=== PATIENT | male | born 1935 | race Caucasian/White ===

== ENCOUNTER 2018-08-02 16:27 | Observation (INO) ==
[2018-08-02] MEDS ORDERED: Ondansetron 4 MG/2 ML VIAL IVP ONE (16:52)
[2018-08-02] MEDS ORDERED: Ketorolac 15 MG/ML VIAL IVP ONE (16:52)
--- NOTE | 2018-08-02 16:58 | Emergency Department Note ---
Disposition Clinical Impression: Kidney stone Disposition: Admitted As Inpatient Condition: Good Referrals: Scott Belle MD [Primary Care Provider] - Forms: ED Satisfaction Letter, Work/School Release General Adult HPI - General Chief complaint: ED Abdominal Pain Stated complaint: Kidney stone Time Seen by Provider: 08/02/18 16:43 Source: patient Mode of arrival: private vehicle Limitations: no limitations Nursing Notes Reviewed: Yes Vital Signs Reviewed: Yes - History of Present Illness HPI Narrative: Pt is an 83M with Pmhx of multiple kidney stones, some requiring surgical resection. He presents today with inability to control pain at home. He was seen at this facility 2 days prior, dx with an 8mm obstructing stone in his left ureter, prescribed pain control for use at home, told to f/u with urology, and discharged. Pt is allergic to percocet, was unable to tolerate oral morphine, and has been unable to control pain. He states that it is a sharp, stabbing pain, that is 8/10 in severity, starts in his left flank and radiates around into his left lower quadrant of abdomen. He has not really been eating or drinking and has only urinated a little today, and it was very dark. Pt states the last time he had kidney stones was approx 3-4 years ago and he had to have 17 of them removed from his kidney. Pt is scheduled with Dr. Gutierrez on Friday but cannot wait until then. Pain Scale: 8 - Related Data Previous Rx's Medication Instructions Recorded Ondansetron ODT [Zofran ODT] 4 mg SL Q6HR #10 tab.rapdis 07/31/18 Allergies Allergy/AdvReac Type Severity Reaction Status Date / Time oxycodone Allergy See Verified 07/31/18 00:55 Comments Review of Systems: All systems ED: reviewed and negative except as stated. Constitutional: Denies: fever, chills ENT ED: Denies: ear pain, throat pain Cardiovascular: Denies: chest pain, palpitations Respiratory: Denies: cough, dyspnea Gastrointestinal: Denies: abdominal pain, diarrhea, constipation Reports: nausea, vomiting Genitourinary: Denies: urgency, dysuria, frequency Reports: flank pain, left sided, decreased urine production Musculoskeletal: Denies: back pain, neck pain Integumentary: Denies: rash, abrasion Neurological: Denies: headache, weakness, numbness, paresthesias Psychiatric: Denies: anxiety, depression Endocrine: Denies: fatigue, heat or cold intolerance Hematological/Lymphatic: Denies: easy bleeding, easy bruising Allergic/Immunologic: Denies: facial swelling, urticaria Past Medical History - Past Medical History Medical history: Reports: hyperlipidemia, hypertension, kidney stones, thyroid disease Psychiatric history: Reports: no psych history - Social History Smoking Status: Never smoker Smokeless Tobacco Status: No Alcohol use: Reports: none Drug use: Reports: none Physical Exam General: A&O x 3. No acute distress. Well developed, well nourished. Head: atraumatic, normocephalic. ENT: No conjunctival injection, no scleral icterus. PERRLA. EOMI. Oropharynx non- erythematous. mucous membranes tacky. Neuro: No focal deficits, no speech deficit, no facial droop, mentating well. BUE/BLE Str /. Pulm: Lungs CTAB A/P. No wheezes, rales, ronchi. Cardio: RRR no m/r/g. Chest not tender to palpation. Abd: Soft, non-distended. Normoactive bowel sounds. Left flank tender, left side of abdomen tender Extremities: Radial pulses 2+ jairo, dorsalis pedis/posterior tibialis 2+ jairo. No LE edema. No cyanosis, clubbing. Skin: warm, dry, intact. No rashes. Psych: Appropriate mood and affect. Answers questions appropriately. Cooperative with exam. - General Limitations: no limitations General appearance: alert, in no apparent distress Course Course Narrative: Pt had CT scan on 07/31, will check CBC, BMP, UA. Will consult Urology. Will place IV. Will adminster anti-emetic and pain control. Will admit for pain control. - Consultations Consultation #1: Spoke with Dr. Monroe, urologist, who agreed to see the patient the next day. Time: 17:00 Vital Signs Temperature 98.2 F 08/02/18 16:37 Pulse Rate 71 08/02/18 16:37 Respiratory Rate 20 08/02/18 16:37 Blood Pressure 153/60 08/02/18 16:37 O2 Sat by Pulse Oximetry 95 08/02/18 16:37 Temperature 98.2 F 08/02/18 16:53 Pulse Rate 71 08/02/18 16:53 Respiratory Rate 20 08/02/18 16:53 Blood Pressure 153/60 08/02/18 16:53 O2 Sat by Pulse Oximetry 95 08/02/18 16:53 Oxygen Delivery Oxygen Delivery Room Air Medical Decision Making - MDM Narrative Medical decision making narrative: Pt was unable to control pain at home, and has a hx of needing surgical intervention for kidney stones in the past. Pt was admitted to Dr. Flores, hospitalist, who accepted the patient to her service. Dr. Monroe, urologist, was consulted and agreed to see the patient the next day for intervention. Pts kidney function was decreased from two days prior, toradol will be avoided while he is in the emergency department. Patient was given an opportunity to ask questions at bedside and all of their concerns were addressed. Patient verbalized understanding and agreement with plan of care. Pt remained stable while in the department. - Medical Records Medical records reviewed: Yes I reviewed the patient's medical records. - Lab Data Lab results reviewed: Yes I reviewed the patient's lab results. Result diagrams: 08/02/18 17:00 08/02/18 17:00 Lab Results 08/02/18 08/02/18 08/02/18 Range/Units 16:57 17:00 17:00 WBC 11.8 H D (4.3-11.1) K/mcL RBC 3.44 L (4.19-5.50) M/mcL Hgb 11.9 L (12.9-16.9) g/dL Hct 36.6 L (37.5-50.1) % MCV 106.4 H (83.0-100.0) fL MCH 34.6 H (28.0-33.3) pg MCHC 32.5 (31.6-35.5) g/dL RDW 14.3 (11.5-14.5) % Plt Count 244 (140-400) K/mcL MPV 9.8 (9.4-12.4) fL Immature Gran % 0.5 (0-4) % Seg Neutrophils % 82.3 % Lymphocytes % 3.0 % Monocytes % 12.1 % Eosinophils % 1.8 % Basophils % 0.3 % Neutrophils # 9.7 H (1.6-8.9) K/mcL Lymphocytes # 0.4 L (0.6-4.6) K/mcL Monocytes # 1.4 H (0.0-1.3) K/mcL Eosinophils # 0.2 (0.0-0.6) K/mcL Basophils # 0.0 (0.0-0.2) K/mcL Sodium 137 (136-145) mEq/L Potassium 4.1 (3.5-5.1) mEq/L Chloride 104 (98-107) mEq/L Carbon Dioxide 22 L (23-29) mEq/L BUN 28 H (8-23) mg/dL Creatinine 1.77 H (0.70-1.30) mg/dL Est GFR ( Amer) 45 L (> 60) Est GFR (Non-Af Amer) 37 L (> 60) BUN/Creatinine Ratio 16 (6-26) Glucose 131 H (70-105) mg/dL Calculated Osmolality 291 (280-300) Calcium 9.0 (8.6-10.3) mg/dL Urine Color Yellow (Yellow) Urine Clarity Clear (Clear) Urine pH 6.0 (5.0-8.0) pH Units Ur Specific [place] 1.020 (1.010-1.025) Urine Protein 30 H (Neg-Trace) mg/dL Urine Glucose (UA) Normal (Normal) mg/dL Urine Ketones Negative (Negative) mg/dL Urine Blood Small H (Negative) Urine Nitrite Negative (Negative) Urine Bilirubin Negative (Negative) Urine Urobilinogen Normal (Normal) mg/dL Ur Leukocyte Esterase Negative (Negative) Urine Microscopic RBC 5-15 H (0-3) per hpf Urine Microscopic WBC 0-3 (0-3) per hpf Ur Squamous Epith Cells Many H (None-Few) per lpf Urine Bacteria None Seen (None-Few) per hpf Hyaline Casts None Seen (None-Few) per lpf Ur Culture Indicated? NO (NO) - Radiology Data Radiology results reviewed: Yes I reviewed the patient's radiology results. Radiology results from 07/31/18 were used in the medical decision making of this case.
[2018-08-02] MEDS ORDERED: *HR* FentaNYL (PF) 100 MCG/2 ML VIAL IVP ONE (17:04)
[2018-08-02 17:05] LABS: Bilirubin,Urine Negative (Negative); Blood,Urine Small (Negative); Clarity,Urine Clear (Clear); Color,Urine Yellow (Yellow); Glucose,Urine (UA) Normal (Normal); Ketones,Urine Negative (Negative); Leukocyte Esterase,Urine Negative (Negative); Nitrite,Urine Negative (Negative); Protein,Urine 30 mg/dL (Neg-Trace); Urobilinogen,Urine Normal (Normal)
[2018-08-02 17:17] LABS: Basophils % 0.3 %; Eosinophils # 0.2 K/mcL (0.0-0.6); Eosinophils % 1.8 %; Hematocrit 36.6 % (37.5-50.1); Hemoglobin 11.9 g/dL (12.9-16.9); Immature Granulocytes % 0.5 % (0-4); Lymphocytes # 0.4 K/mcL (0.6-4.6); Mean Corpuscular HGB Conc 32.5 g/dL (31.6-35.5); Mean Corpuscular Hemoglobin 34.6 pg (28.0-33.3); Mean Corpuscular Volume 106.4 fL (83.0-100.0); Mean Platelet Volume 9.8 fL (9.4-12.4); Monocytes # 1.4 K/mcL (0.0-1.3); Monocytes % 12.1 %; Neutrophils # 9.7 K/mcL (1.6-8.9); Platelet Count 244 K/mcL (140-400); Red Blood Count 3.44 M/mcL (4.19-5.50); Red Cell Distribution Width 14.3 % (11.5-14.5); Segmented Neutrophils % 82.3 %
[2018-08-02 17:21] LABS: Bacteria,Urine None Seen per hpf (None-Few); Hyaline Casts,Urine None Seen per lpf (None-Few); Squamous Epithelial Cell,Urine Many per lpf (None-Few); WBC,Urine 0-3 per hpf (0-3)
[2018-08-02 17:36] LABS: Potassium 4.1 mEq/L (3.5-5.1)
--- NOTE | 2018-08-02 17:58 | Emergency Department Note ---
Disposition Clinical Impression: Kidney stone Disposition: Admitted As Inpatient Condition: Good Forms: ED Satisfaction Letter, Work/School Release General Adult HPI - General Chief complaint: ED Abdominal Pain Stated complaint: Kidney stone Time Seen by Provider: 08/02/18 16:43 Source: patient Mode of arrival: private vehicle Limitations: no limitations - History of Present Illness Pain Scale: 8 - Related Data Previous Rx's Medication Instructions Recorded Ondansetron ODT [Zofran ODT] 4 mg SL Q6HR #10 tab.rapdis 07/31/18 Allergies Allergy/AdvReac Type Severity Reaction Status Date / Time oxycodone Allergy See Verified 07/31/18 00:55 Comments Past Medical History - Past Medical History Medical history: Reports: hyperlipidemia, hypertension, kidney stones, thyroid disease Psychiatric history: Reports: no psych history - Social History Smoking Status: Never smoker Smokeless Tobacco Status: No Alcohol use: Reports: none Drug use: Reports: none Physical Exam - General Limitations: no limitations General appearance: alert, in no apparent distress Course Vital Signs Temperature 98.2 F 08/02/18 16:37 Pulse Rate 71 08/02/18 16:37 Respiratory Rate 20 08/02/18 16:37 Blood Pressure 153/60 08/02/18 16:37 O2 Sat by Pulse Oximetry 95 08/02/18 16:37 Temperature 98.2 F 08/02/18 16:53 Pulse Rate 71 08/02/18 16:53 Respiratory Rate 20 08/02/18 16:53 Blood Pressure 153/60 08/02/18 16:53 O2 Sat by Pulse Oximetry 95 08/02/18 16:53 Oxygen Delivery Oxygen Delivery Room Air Medical Decision Making - Lab Data Result diagrams: 08/02/18 17:00 08/02/18 17:00 Lab Results 08/02/18 08/02/18 08/02/18 Range/Units 16:57 17:00 17:00 WBC 11.8 H D (4.3-11.1) K/mcL RBC 3.44 L (4.19-5.50) M/mcL Hgb 11.9 L (12.9-16.9) g/dL Hct 36.6 L (37.5-50.1) % MCV 106.4 H (83.0-100.0) fL MCH 34.6 H (28.0-33.3) pg MCHC 32.5 (31.6-35.5) g/dL RDW 14.3 (11.5-14.5) % Plt Count 244 (140-400) K/mcL MPV 9.8 (9.4-12.4) fL Immature Gran % 0.5 (0-4) % Seg Neutrophils % 82.3 % Lymphocytes % 3.0 % Monocytes % 12.1 % Eosinophils % 1.8 % Basophils % 0.3 % Neutrophils # 9.7 H (1.6-8.9) K/mcL Lymphocytes # 0.4 L (0.6-4.6) K/mcL Monocytes # 1.4 H (0.0-1.3) K/mcL Eosinophils # 0.2 (0.0-0.6) K/mcL Basophils # 0.0 (0.0-0.2) K/mcL Sodium 137 (136-145) mEq/L Potassium 4.1 (3.5-5.1) mEq/L Chloride 104 (98-107) mEq/L Carbon Dioxide 22 L (23-29) mEq/L BUN 28 H (8-23) mg/dL Creatinine 1.77 H (0.70-1.30) mg/dL Est GFR ( Amer) 45 L (> 60) Est GFR (Non-Af Amer) 37 L (> 60) BUN/Creatinine Ratio 16 (6-26) Glucose 131 H (70-105) mg/dL Calculated Osmolality 291 (280-300) Calcium 9.0 (8.6-10.3) mg/dL Urine Color Yellow (Yellow) Urine Clarity Clear (Clear) Urine pH 6.0 (5.0-8.0) pH Units Ur Specific [place] 1.020 (1.010-1.025) Urine Protein 30 H (Neg-Trace) mg/dL Urine Glucose (UA) Normal (Normal) mg/dL Urine Ketones Negative (Negative) mg/dL Urine Blood Small H (Negative) Urine Nitrite Negative (Negative) Urine Bilirubin Negative (Negative) Urine Urobilinogen Normal (Normal) mg/dL Ur Leukocyte Esterase Negative (Negative) Urine Microscopic RBC 5-15 H (0-3) per hpf Urine Microscopic WBC 0-3 (0-3) per hpf Ur Squamous Epith Cells Many H (None-Few) per lpf Urine Bacteria None Seen (None-Few) per hpf Hyaline Casts None Seen (None-Few) per lpf Ur Culture Indicated? NO (NO) Attestation Statement - Attestation Attestation: I examined this patient and my medical decision-making was reviewed with the Resident Physician. I agree with the documented findings, disposition and treatment plan as described except to the extent set forth below. 83 year old male presents to the eD with complaints of kidney stone pain and has a 8mm onthe proximal left ureter. elevted crn, no infection. we will admit to medicine accepted by Dr. Flores, consulted to Dr. Monroe
--- NOTE | 2018-08-02 18:05 | Internal Med History&Physical ---
Date of Encounter: 08/03/18 Time of Encounter: 18:04 Internal Medicine - H&P: HPI Chief complaint: Left Flank Pain Admitted From: Home History of present illness: Mr. Frances is a 83 year old male Pmhx of multiple kidney stones voice presenting today left ankle sharp stabbing pain that radiated to the left lower quadrant of his abdomen, viewing his records revealed that he was evaluated at [facility] 2 days ago and an 8 mm obstructing stone of his left ureter was noted, he was told to follow-up with urology as an outpatient. The patient is allergic to Percocet, and he could not control his pain at home. He is scheduled to see urology and Friday however due to he is in ability to control pain at home, he was admitted for further evaluation and management by urology team, we will discussed the case with the ER staff and agreed to see the patient on consult. Past Med Surg Social Fam HX - Past Medical History Medical history: hyperlipidemia, hypertension, kidney stones, thyroid disease Additional medical history: pneumonia Psychiatric history: no psych history - Past Surgical History Additional surgical history: thyroid. lithotripsy - Social History Smoking Status: Never smoker Smokeless Tobacco Status: No Alcohol use: none Drug use: none - Family History Father Hx Family Cancer: Yes Internal Medicine - H&P: Meds Ondansetron ODT [Zofran ODT] 4 mg SL Q6HR #10 tab.rapdis 07/31/18 [Rx] Albuterol Sulfate [Ventolin Hfa] 8 gm IH DAILY 08/03/18 [History] Aspirin [Lo-Dose Aspirin EC] 81 mg PO DAILY 08/03/18 [History] Atorvastatin [Lipitor] 40 mg PO HS 08/03/18 [History] Cholecalciferol (Vitamin D3) [Vitamin D] 1,000 unit PO DAILY 08/03/18 [History] Clopidogrel [Plavix] 75 mg PO DAILY 08/03/18 [History] Cyanocobalamin (Vitamin B-12) [Vitamin B12] 500 mcg PO QMWFSU 08/03/18 [History] Folic Acid [FA-8] 0.8 mg PO DAILY 08/03/18 [History] Levothyroxine [Synthroid] 125 mcg PO DAILY 08/03/18 [History] Lisinopril [Zestril] 10 mg PO DAILY 08/03/18 [History] Mercaptopurine [Purinethol] 50 mg PO DAILY 08/03/18 [History] Metoprolol Tartrate 50 mg PO BID 08/03/18 [History] Pantoprazole Sodium [Protonix] 40 mg PO DAILY 08/03/18 [History] Sertraline [Zoloft] 50 mg PO HS 08/03/18 [History] traZODone [TraZODone] 100 mg PO HS 08/03/18 [History] Allergy/AdvReac Type Severity Reaction Status Date / Time oxycodone Allergy Hallucinati Verified 08/02/18 19:47 ng All Systems PM: A 10-system review of systems was performed and is negative for pertinent findings except as documented above in the HPI. - Constitutional Constitutional: no chills, no fever(s), no night sweats - EENT Eyes: no change in vision, no discharge, no pain, no photophobia Ears: no ear discharge, no ear pain, no tinnitus Nose, mouth and throat: no dysphagia, no nasal discharge, no neck pain, no sore throat - Cardiovascular Cardiovascular ROS IM: no chest pain, no diaphoresis, no dyspnea, no lightheadedness, no palpitations, no syncope - Respiratory Respiratory: no cough, no dyspnea, no wheezing, no excessive phlegm production - Gastrointestinal Gastrointestinal: no abdominal pain, no diarrhea, no hematemesis, no hematochezia, no melena, no nausea, no vomiting - Genitourinary Genitourinary ROS male: flank pain - Musculoskeletal Musculoskeletal ROS IM: no numbness, no tingling - Integumentary Integumentary IM: no rash, no unusual bruising - Neurological Neurological ROS: no confusion, no convulsions, no focal weakness, no numbness, no tingling, no tremor(s) - Hematologic/Lymphatic Hematologic/Lymphatic: no easy bruising - Constitutional Vitals: Temp Pulse Resp BP Pulse Ox 98.2 F 71 20 153/60 95 08/02/18 16:53 08/02/18 16:53 08/02/18 16:53 08/02/18 16:53 08/02/18 16:53 Exam: As below - Head Head exam: Present: atraumatic, normocephalic - Eye Eye exam: Present: PERRL, conjuntiva pink, sclera anicteric Pupils: Present: PERRL - Neck Neck exam general surgery: Present: supple, trachea midline. Absent: lymphadenopathy - Respiratory Respiratory exam: Present: CTAB. Absent: accessory muscle use, rales, rhonchi, wheezes - Cardiovascular Cardiovascular exam: Present: RRR, +S1, +S2. Absent: diastolic murmur, gallop, rubs, systolic murmur - GI/Abdominal GI/Abdominal exam: Present: normal bowel sounds, soft, no peritoneal signs. Absent: distended, tenderness - Extremities Exam Extremities exam: Present: warm, radial pulses palpable and symmetrical. Absent: calf tenderness, cyanotic, pedal edema - Neurological Exam Neurological exam: Present: CN II-XII intact, oriented X3, no focal deficits. Absent: pronater drift, facial droop, speech deficit - Skin Skin exam: Present: dry, intact Internal Med - H&P Results - Labs CBC & Chem 7: 08/03/18 03:16 08/03/18 03:16 Labs: Short CBC 08/02/18 Range/Units 17:00 WBC 11.8 H D (4.3-11.1) K/mcL Hgb 11.9 L (12.9-16.9) g/dL Hct 36.6 L (37.5-50.1) % Plt Count 244 (140-400) K/mcL Neutrophils # 9.7 H (1.6-8.9) K/mcL BMP 08/02/18 17:00 Sodium 137 Potassium 4.1 Chloride 104 Carbon Dioxide 22 L BUN 28 H Creatinine 1.77 H Glucose 131 H Calcium 9.0 Urine 08/02/18 Range/Units 16:57 Urine Color Yellow (Yellow) Urine Clarity Clear (Clear) Urine pH 6.0 (5.0-8.0) pH Units Ur Specific [place] 1.020 (1.010-1.025) Urine Protein 30 H (Neg-Trace) mg/dL Urine Glucose (UA) Normal (Normal) mg/dL - Assessment and Plan (1) Urolithiasis Current Visit: No Status: Acute Assessment and plan: 8 mm obstructing stone of his left ureter was noted, he was told to follow-up with urology as an outpatient. The patient is allergic to Percocet, and he could not control his pain at home. He is scheduled to see urology and Friday however due to he is in ability to control pain at home, he was admitted for further evaluation and management by urology team, we will discussed the case with the ER staff and agreed to see the patient on consult for possible ureteroscopic stone extraction. We will start the patient on IV hydration and start pain management. (2) Acute kidney injury Current Visit: Yes Status: Acute Assessment and plan: Most likely 2/2 to pre-renal etiology in the sitting of volume depletion, we will start isotonic fluid, strict I?o , renal dosing of meds. (3) Metabolic acidosis Current Visit: Yes Status: Acute Assessment and plan: most likely 2/2 to renal impairment. (4) Anemia Current Visit: Yes Status: Acute Assessment and plan: Macrocytic anemia, we will check folic acid and Vit. B12 levels. Qualifiers: Qualified Code(s): D64.9 - Anemia, unspecified (5) Aortic aneurysm Current Visit: No Status: Acute Qualifiers: Qualified Code(s): I71.9 - Aortic aneurysm of unspecified site, without rupture (6) DVT prophylaxis Current Visit: Yes Status: Acute Assessment and plan: We will place SCD - Time Spent With Patient Total time spent is greater than 50% in coordination of care (as documented) at patient's floor/unit and/or counseling patient:
[2018-08-02] MEDS ORDERED: Ondansetron 4 MG/2 ML VIAL IVP PRN (18:12)
[2018-08-02] MEDS ORDERED: Naloxone 0.4 MG/ML INJ IVP PRN ×2 (18:12)
[2018-08-02] MEDS ORDERED: Ketorolac 30 MG/ML VIAL IVP PRN (18:12)
[2018-08-02] MEDS ORDERED: Acetaminophen 325 MG TABLET PO PRN (18:12)
[2018-08-02] MEDS ORDERED: *HR* HYDROcodone/Acet 7.5/325 mg TABLET PO PRN ×3 (19:26→22:09)
[2018-08-02] MEDS: 0.9 % Sodium Chloride 1,000 ML IVC SCH (19:59)
[2018-08-02] MEDS ORDERED: Acetaminophen IV 500 MG/50 ML INFUS..BTL IVPB ONE (21:36)
[2018-08-02] MEDS ORDERED: traMADol 50 MG TABLET PO PRN (21:55)
[2018-08-02] MEDS: traMADol 50 MG TABLET PO PRN (22:30)
[2018-08-03] MEDS ORDERED: OXYCODONE Oral CONC 10 MG/0.5 ML ORAL.SYG SL ONE (00:04)
[2018-08-03 03:55] LABS: Basophils % 0.2 %; Eosinophils # 0.1 K/mcL (0.0-0.6); Eosinophils % 1.5 %; Hematocrit 34.4 % (37.5-50.1); Hemoglobin 11.2 g/dL (12.9-16.9); Immature Granulocytes % 0.5 % (0-4); Lymphocytes # 0.5 K/mcL (0.6-4.6); Lymphocytes % 4.8 %; Mean Corpuscular HGB Conc 32.6 g/dL (31.6-35.5); Mean Corpuscular Volume 107.5 fL (83.0-100.0); Mean Platelet Volume 10.5 fL (9.4-12.4); Monocytes # 1.4 K/mcL (0.0-1.3); Monocytes % 15.4 %; Neutrophils # 7.2 K/mcL (1.6-8.9); Platelet Count 211 K/mcL (140-400); Red Cell Distribution Width 14.2 % (11.5-14.5); Segmented Neutrophils % 77.6 %
[2018-08-03 04:02] LABS: INR 1.1; Prothrombin Time 12.9 Seconds (9.4-12.1)
[2018-08-03 04:05] LABS: Activated Partial Thrombo Time 30.1 Seconds (26.0-36.0)
[2018-08-03] MEDS: 0.9 % Sodium Chloride 1,000 ML IVC SCH (04:11)
[2018-08-03 04:13] LABS: Albumin 3.5 g/dL (3.5-5.7); Albumin/Globulin Ratio 1.5 (1.1-2.2); Bilirubin,Total 0.9 mg/dL (0.3-1.0); Calcium 8.7 mg/dL (8.6-10.3); Globulin 2.4 g/dL (2.4-3.5); Magnesium 1.7 mg/dL (1.6-2.6); Phosphorous 2.8 mg/dL (2.7-4.5); Potassium 4.2 mEq/L (3.5-5.1); Total Protein 5.9 g/dL (6.4-8.9)
[2018-08-03] MEDS: traMADol 50 MG TABLET PO PRN (06:05)
--- NOTE | 2018-08-03 07:10 | Event Note ---
Date of Encounter: 08/03/18 Time of Encounter: 07:09 Full history and physical to follow. Patient seen this morning and examined. Having moderate discomfort in the left flank. I reviewed the CT scan which reveals an 8 mm proximal ureteral stone with hydronephrosis. He has acute renal insufficiency. He has been scheduled for a possible ureteroscopic stone extraction with holmium laser lithotripsy and ureteral stent placement. We discussed that it is possible that we would only be able to place a ureteral stent which would require a staged procedure to address the stone. He voiced an understanding and wishes to proceed. He understands it may be myself or Dr. Meeks depending on timing today
--- NOTE | 2018-08-03 07:56 | Urology - Consult Note ---
Date of Encounter: 08/03/18 Time of Encounter: 07:54 - Assessment and Plan (1) Ureteral stone with hydronephrosis Current Visit: Yes Status: Acute Assessment and plan: Please see the event note. Plan to proceed with ureteroscopic stone extraction with holmium laser lithotripsy and ureteral stent placement today. Patient understands that we may not be able to reach the stone which would require a stent placement and stage stone extraction. He understands the risks of the procedure which includes infection, stent complications, stent discomfort, stricture, injury to his urinary tract. Urology CN:CAMILLE Consult date: 08/03/18 Reason for consult Urology: Hydronephrosis History of present illness: 83-year-old male admitted for an 8 mm obstructing left ureteral stone with hydronephrosis and acute renal insufficiency. Continues to have pain this morning. He has a history of stones. He has had no fever. Positive nausea. Past Med Surg Social Fam HX - Past Medical History Medical history: hyperlipidemia, hypertension, kidney stones, thyroid disease Additional medical history: pneumonia Psychiatric history: no psych history - Past Surgical History Additional surgical history: thyroid. lithotripsy - Social History Smoking Status: Never smoker Smokeless Tobacco Status: No Alcohol use: none Drug use: none - Family History Father Hx Family Cancer: Yes Medications and Allergies Ondansetron ODT [Zofran ODT] 4 mg SL Q6HR #10 tab.rapdis 07/31/18 [Rx] Albuterol Sulfate [Ventolin Hfa] 8 gm IH DAILY 08/03/18 [History] Aspirin [Lo-Dose Aspirin EC] 81 mg PO DAILY 08/03/18 [History] Atorvastatin [Lipitor] 40 mg PO HS 08/03/18 [History] Cholecalciferol (Vitamin D3) [Vitamin D] 1,000 unit PO DAILY 08/03/18 [History] Clopidogrel [Plavix] 75 mg PO DAILY 08/03/18 [History] Cyanocobalamin (Vitamin B-12) [Vitamin B12] 500 mcg PO QMWFSU 08/03/18 [History] Folic Acid [FA-8] 0.8 mg PO DAILY 08/03/18 [History] Levothyroxine [Synthroid] 125 mcg PO DAILY 08/03/18 [History] Lisinopril [Zestril] 10 mg PO DAILY 08/03/18 [History] Mercaptopurine [Purinethol] 50 mg PO DAILY 08/03/18 [History] Metoprolol Tartrate 50 mg PO BID 08/03/18 [History] Pantoprazole Sodium [Protonix] 40 mg PO DAILY 08/03/18 [History] Sertraline [Zoloft] 50 mg PO HS 08/03/18 [History] traZODone [TraZODone] 100 mg PO HS 08/03/18 [History] Allergy/AdvReac Type Severity Reaction Status Date / Time oxycodone Allergy Hallucinati Verified 08/02/18 19:47 ng Review of Systems - Constitutional no chills, no fatigue, no fever(s), no malaise - EENT Nose, mouth and throat: no dizziness, no headache(s) - Cardiovascular no chest pain - Respiratory no cough - Gastrointestinal abdominal pain, nausea, vomiting - Genitourinary flank pain, hematuria - Musculoskeletal back pain - Integumentary no erythema - Neurological no confusion - Psychiatric no anxiety - Hematologic/Lymphatic no easy bleeding - Allergic/Immunologic no throat swelling Exam Initial Vital Signs Temp Pulse Resp BP Pulse Ox 98.2 F 71 20 153/60 95 08/02/18 16:37 08/02/18 16:37 08/02/18 16:37 08/02/18 16:37 08/02/18 16:37 - General physical appearance Present: well developed, no distress, moderate pain - Eyes Present: PERRL, conjunctiva is clear - ENT Present: normal nares - Neck Present: no masses - Respiratory Present: normal respiratory effort - Cardiovascular Cardiovascular exam IM: RRR - Abdomen Abdomen: Present: soft. Absent: suprapubic tenderness - Integumentary Present: no rash, no growths, no abnormal pigmentation - Neurologic Present: normal coordination. Absent: disoriented, confused - Additional Findings Positive left CVA tenderness Urology Results - Labs 08/03/18 03:16 08/03/18 03:16 Abnormal lab results RBC 3.20 M/mcL (4.19-5.50) L 08/03/18 03:16 Hgb 11.2 g/dL (12.9-16.9) L 08/03/18 03:16 Hct 34.4 % (37.5-50.1) L 08/03/18 03:16 MCV 107.5 fL (83.0-100.0) H 08/03/18 03:16 MCH 35.0 pg (28.0-33.3) H 08/03/18 03:16 Lymphocytes # 0.5 K/mcL (0.6-4.6) L 08/03/18 03:16 Monocytes # 1.4 K/mcL (0.0-1.3) H 08/03/18 03:16 PT 12.9 Seconds (9.4-12.1) H 08/03/18 03:16 Creatinine 1.59 mg/dL (0.70-1.30) H 08/03/18 03:16 Est GFR ( Amer) 51 (> 60) L 08/03/18 03:16 Est GFR (Non-Af Amer) 42 (> 60) L 08/03/18 03:16 Glucose 124 mg/dL (70-105) H 08/03/18 03:16 Serum Total Protein 5.9 g/dL (6.4-8.9) L 08/03/18 03:16 Urine Protein 30 mg/dL (Neg-Trace) H 08/02/18 16:57 Urine Blood Small (Negative) H 08/02/18 16:57 Urine Microscopic RBC 5-15 per hpf (0-3) H 08/02/18 16:57 Ur Squamous Epith Cells Many per lpf (None-Few) H 08/02/18 16:57 Diabetes panel 08/02/18 08/03/18 Range/Units 17:00 03:16 Sodium 137 138 (136-145) mEq/L Potassium 4.1 4.2 (3.5-5.1) mEq/L Chloride 104 106 (98-107) mEq/L Carbon Dioxide 22 L 23 (23-29) mEq/L BUN 28 H 22 (8-23) mg/dL Creatinine 1.77 H 1.59 H (0.70-1.30) mg/dL Glucose 131 H 124 H (70-105) mg/dL Calcium 9.0 8.7 (8.6-10.3) mg/dL AST 15 (13-39) Units/L ALT 10 (7-52) Units/L Alkaline Phosphatase 60 (34-104) Units/L Albumin 3.5 (3.5-5.7) g/dL Calcium panel 08/02/18 08/03/18 Range/Units 17:00 03:16 Calcium 9.0 8.7 (8.6-10.3) mg/dL Phosphorus 2.8 (2.7-4.5) mg/dL Albumin 3.5 (3.5-5.7) g/dL Pituitary panel 08/02/18 08/03/18 Range/Units 17:00 03:16 Sodium 137 138 (136-145) mEq/L Potassium 4.1 4.2 (3.5-5.1) mEq/L Chloride 104 106 (98-107) mEq/L Carbon Dioxide 22 L 23 (23-29) mEq/L BUN 28 H 22 (8-23) mg/dL Creatinine 1.77 H 1.59 H (0.70-1.30) mg/dL Glucose 131 H 124 H (70-105) mg/dL Calcium 9.0 8.7 (8.6-10.3) mg/dL Adrenal panel 08/02/18 08/03/18 Range/Units 17:00 03:16 Sodium 137 138 (136-145) mEq/L Potassium 4.1 4.2 (3.5-5.1) mEq/L Chloride 104 106 (98-107) mEq/L Carbon Dioxide 22 L 23 (23-29) mEq/L BUN 28 H 22 (8-23) mg/dL Creatinine 1.77 H 1.59 H (0.70-1.30) mg/dL Glucose 131 H 124 H (70-105) mg/dL Calcium 9.0 8.7 (8.6-10.3) mg/dL Total Bilirubin 0.9 (0.3-1.0) mg/dL AST 15 (13-39) Units/L ALT 10 (7-52) Units/L Alkaline Phosphatase 60 (34-104) Units/L Albumin 3.5 (3.5-5.7) g/dL All other labs normal. - Imaging CT scan - abdomen: image reviewed Consult Discharge Plan - Plan Referrals: Scott Belle MD [Primary Care Provider] -
[2018-08-03] MEDS ORDERED: *HR* HYDROcodone/Acet 7.5/325 mg TABLET PO PRN ×2 (09:35→18:07)
[2018-08-03] MEDS: *HR* FentaNYL (PF) 100 MCG/2 ML VIAL IVP PRN ×2 (10:07→13:10)
--- NOTE | 2018-08-03 10:28 | Internal Med Progress Note ---
<Heber Vogel - Last Filed: 08/03/18 10:26> Hospitalist Progress Note - Encounter Date of Encounter: 08/03/18 Time of Encounter: 09:20 - Subjective Interval History: Mr. Frances continues to experience back pain and dysuria. Pain is 9/10 despite Blue Ridge and Ultram. Admits to decreased urine output and hematuria. Denies chest pain, SOB. Denies fever, chills, vomiting, diarrhea, but does admit to nausea. Slept decently. No BM since admission. - Exam Vitals: Temp Pulse Resp BP Pulse Ox 97.3 F L 80 18 136/80 93 08/03/18 07:52 08/03/18 07:52 08/03/18 07:52 08/03/18 07:52 08/03/18 07:52 Exam: As below - Head Head exam: Present: atraumatic, normocephalic - Eye Eye exam: Present: PERRL, conjuntiva pink, sclera anicteric Pupils: Present: PERRL - Neck Neck exam general surgery: Present: supple, trachea midline. Absent: lymphadenopathy - Respiratory Respiratory exam: Present: CTAB. Absent: accessory muscle use, rales, rhonchi, wheezes - Cardiovascular Cardiovascular exam: Present: RRR, +S1, +S2. Absent: diastolic murmur, gallop, rubs, systolic murmur - GI/Abdominal GI/Abdominal exam: Present: normal bowel sounds, soft, no peritoneal signs. Absent: distended, tenderness - Extremities Exam Extremities exam: Present: warm, radial pulses palpable and symmetrical. Absent: calf tenderness, cyanotic, pedal edema - Neurological Exam Neurological exam: Present: CN II-XII intact, oriented X3, no focal deficits. Absent: pronater drift, facial droop, speech deficit - Skin Skin exam: Present: dry, intact - Assessment and Plan (1) Urolithiasis Current Visit: No Status: Acute Assessment and Plan: (1) Urolithiasis Current Visit: No Status: Acute Assessment and plan: Stable. CT abdomen/pelvis without IV contrast demonstrates left sided obstructive uropathy with 8mm calculus in proximal left ureter with moderate hydroureter and hydronephrosis. Urology has been seen. Plan: -Pain uncontrolled. Will start [place] 7.5 q 6h and fentanyl 25mcg IVP q3h as needed. -Continue NPO -Plan to proceed with ureteroscopic stone extraction with holmium laser lithotripsy and ureteral stent placement per Dr. Monroe, possibly today. Will check schedule. -O2 as needed for SPO2 >92% Dispo pending (2) Acute kidney injury Current Visit: Yes Status: Acute Assessment and plan: Improving. RADHA likely 2/2 to pre-renal etiology in the sitting of volume depletion, continue IVF, strict I/O , renal dosing of meds. (3) Anemia Current Visit: Yes Status: Acute Assessment and plan: Macrocytic anemia, we will check folic acid and Vit. B12 levels. Qualifiers: Qualified Code(s): D64.9 - Anemia, unspecified (4) Aortic aneurysm Current Visit: No Status: Acute Qualifiers: Qualified Code(s): I71.9 - Aortic aneurysm of unspecified site, without rupture (5) DVT prophylaxis Current Visit: Yes Status: Acute Assessment and plan: We will place SCD - Time Spent with Patient Total time spent is greater than 50% in coordination of care (as documented) at patient's floor/unit and/or counseling patient: Greater than 35 minutes Plan of Care Discussed with: patient Internal Medicine: Result - Labs CBC & Chem 7: 08/03/18 03:16 08/03/18 03:16 Labs: Short CBC 08/02/18 08/03/18 Range/Units 17:00 03:16 WBC 11.8 H D 9.3 (4.3-11.1) K/mcL Hgb 11.9 L 11.2 L (12.9-16.9) g/dL Hct 36.6 L 34.4 L (37.5-50.1) % Plt Count 244 211 (140-400) K/mcL Neutrophils # 9.7 H 7.2 (1.6-8.9) K/mcL BMP 08/02/18 08/03/18 17:00 03:16 Sodium 137 138 Potassium 4.1 4.2 Chloride 104 106 Carbon Dioxide 22 L 23 BUN 28 H 22 Creatinine 1.77 H 1.59 H Glucose 131 H 124 H Calcium 9.0 8.7 Liver Function 08/03/18 Range/Units 03:16 Total Bilirubin 0.9 (0.3-1.0) mg/dL AST 15 (13-39) Units/L ALT 10 (7-52) Units/L Alkaline Phosphatase 60 (34-104) Units/L Albumin 3.5 (3.5-5.7) g/dL Urine 08/02/18 Range/Units 16:57 Urine Color Yellow (Yellow) Urine Clarity Clear (Clear) Urine pH 6.0 (5.0-8.0) pH Units Ur Specific [place] 1.020 (1.010-1.025) Urine Protein 30 H (Neg-Trace) mg/dL Urine Glucose (UA) Normal (Normal) mg/dL - ABG Interpretation ABG results: PT/INR, D-dimer PT 12.9 Seconds (9.4-12.1) H 08/03/18 03:16 Consult Discharge Plan - Plan Referrals: Scott Belle MD [Primary Care Provider] - 08/06/18 2:00 pm <Dakota Brower - Last Filed: 08/03/18 15:48> Hospitalist Progress Note - Encounter Date of Encounter: 08/03/18 - Exam Vitals: Temp Pulse Resp BP Pulse Ox 98.9 F 78 15 145/75 92 08/03/18 11:25 08/03/18 11:25 08/03/18 11:25 08/03/18 11:25 08/03/18 11:25 - Assessment and Plan (1) Urolithiasis Current Visit: No Status: Acute (2) Aortic aneurysm Current Visit: No Status: Acute (3) Acute kidney injury Current Visit: Yes Status: Acute (4) Metabolic acidosis Current Visit: Yes Status: Acute (5) Anemia Current Visit: Yes Status: Acute (6) DVT prophylaxis Current Visit: Yes Status: Acute - Time Spent with Patient Total time spent is greater than 50% in coordination of care (as documented) at patient's floor/unit and/or counseling patient: Internal Medicine: Result - Labs CBC & Chem 7: 08/03/18 03:16 08/03/18 03:16 Labs: Short CBC 08/02/18 08/03/18 Range/Units 17:00 03:16 WBC 11.8 H D 9.3 (4.3-11.1) K/mcL Hgb 11.9 L 11.2 L (12.9-16.9) g/dL Hct 36.6 L 34.4 L (37.5-50.1) % Plt Count 244 211 (140-400) K/mcL Neutrophils # 9.7 H 7.2 (1.6-8.9) K/mcL BMP 08/02/18 08/03/18 17:00 03:16 Sodium 137 138 Potassium 4.1 4.2 Chloride 104 106 Carbon Dioxide 22 L 23 BUN 28 H 22 Creatinine 1.77 H 1.59 H Glucose 131 H 124 H Calcium 9.0 8.7 Liver Function 08/03/18 Range/Units 03:16 Total Bilirubin 0.9 (0.3-1.0) mg/dL AST 15 (13-39) Units/L ALT 10 (7-52) Units/L Alkaline Phosphatase 60 (34-104) Units/L Albumin 3.5 (3.5-5.7) g/dL Urine 08/02/18 Range/Units 16:57 Urine Color Yellow (Yellow) Urine Clarity Clear (Clear) Urine pH 6.0 (5.0-8.0) pH Units Ur Specific [place] 1.020 (1.010-1.025) Urine Protein 30 H (Neg-Trace) mg/dL Urine Glucose (UA) Normal (Normal) mg/dL - ABG Interpretation ABG results: PT/INR, D-dimer PT 12.9 Seconds (9.4-12.1) H 08/03/18 03:16 - Attending Attestation I examined this patient and my medical decision-making was reviewed with the Resident Physician Dr. Vogel. I agree with the documented findings, disposition and treatment plan as described except to the extent set forth below. Mr. Frances is a 83 year old male PMH of multiple kidney stones, hypertension and hyperlipidemia pt presented to ER with left flank sharp stabbing pain that radiated to the left lower quadrant of his abdomen. He does have 8 mm obstruc ting stone of his left ureter was noted. Patient was admitted in the hospital and started him on symptomatic and supportive care. His pain is not tolerable with current medication. So started him on IV fentanyl. His UA - benign. Was evaluated by urologist who is planning on taking him to OR today for possible cystoscopy, stent placement with stone extraction/lithotripsy. <Heber Vogel - Last Filed: 08/03/18 10:26> (1) Urolithiasis Qualifiers: Qualified Code(s): N20.9 - Urinary calculus, unspecified <Dakota Brower - Last Filed: 08/03/18 15:48> (2) Aortic aneurysm Qualifiers: Qualified Code(s): I71.9 - Aortic aneurysm of unspecified site, without rupture (5) Anemia Qualifiers: Qualified Code(s): D64.9 - Anemia, unspecified
[2018-08-03] MEDS ORDERED: Ondansetron 4 MG/2 ML VIAL ONE (15:39)
[2018-08-03] MEDS ORDERED: Lidocaine -MPF 2% 2 ML VIAL ONE (15:39)
[2018-08-03] MEDS ORDERED: *HR* Propofol 200 MG/20 ML VIAL IVP ONE (15:39)
[2018-08-03] MEDS ORDERED: *HR* FentaNYL (PF) 100 MCG/2 ML VIAL ONE ×2 (15:39→16:48)
[2018-08-03] MEDS ORDERED: Dexamethasone 4 MG/ML VIAL ONE (15:39)
--- NOTE | 2018-08-03 15:57 | Anesthesia Evaluation PreOp ---
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: Denies Any Significant HX Other Medical History: Renal (RADHA, stones), Thyroid (hypo) Anesthesia History: No Prior Anesthetic Complications, Past Anesthesia (lithotripsy, s/p thyroidectomy) Alcohol Use: none Drug use: none Medications and Allergies Ondansetron ODT [Zofran ODT] 4 mg SL Q6HR #10 tab.rapdis 07/31/18 [Rx] Albuterol Sulfate [Ventolin Hfa] 8 gm IH DAILY 08/03/18 [History] Aspirin [Lo-Dose Aspirin EC] 81 mg PO DAILY 08/03/18 [History] Atorvastatin [Lipitor] 40 mg PO HS 08/03/18 [History] Cholecalciferol (Vitamin D3) [Vitamin D] 1,000 unit PO DAILY 08/03/18 [History] Clopidogrel [Plavix] 75 mg PO DAILY 08/03/18 [History] Cyanocobalamin (Vitamin B-12) [Vitamin B12] 500 mcg PO QMWFSU 08/03/18 [History] Folic Acid [FA-8] 0.8 mg PO DAILY 08/03/18 [History] Levothyroxine [Synthroid] 125 mcg PO DAILY 08/03/18 [History] Lisinopril [Zestril] 10 mg PO DAILY 08/03/18 [History] Mercaptopurine [Purinethol] 50 mg PO DAILY 08/03/18 [History] Metoprolol Tartrate 50 mg PO BID 08/03/18 [History] Pantoprazole Sodium [Protonix] 40 mg PO DAILY 08/03/18 [History] Sertraline [Zoloft] 50 mg PO HS 08/03/18 [History] traZODone [TraZODone] 100 mg PO HS 08/03/18 [History] Allergy/AdvReac Type Severity Reaction Status Date / Time oxycodone Allergy Hallucinati Verified 08/02/18 19:47 ng - Meds/Allergy Pre-op Review Medications Reviewed: Yes Allergies Reviewed: Yes Beta Blockers on Current Med List: Yes If Beta Blockers taken, Date/Time (Last Dose taken): am yesterday at home but not started in the hospital Anesthesia Results - Labs 08/03/18 03:16 08/03/18 03:16 - Imaging EKG: image reviewed (08/03/17 SR) Anesthesia Exam Vital Signs/O2 Sat, Most Current Temp Pulse Resp BP Pulse Ox 98.9 F 83 17 145/75 88 08/03/18 15:48 08/03/18 15:48 08/03/18 15:48 08/03/18 11:25 08/03/18 15:48 - HEENT Pupil (Motor): Pupils equal, EOMI Mallampati: II Teeth: Edentulous Oral Opening: Greater than 3 - SALES REPRESENTATIVE GRAPHIC ART LOC: Oriented SALES REPRESENTATIVE GRAPHIC ART Motor: Normal RUE, Normal LUE, Normal RLE, Normal LLE, Normal Face SALES REPRESENTATIVE GRAPHIC ART Sensory: Normal: RUE, LUE, RLE, LLE, Face - Cardiac Rhythm: Regular - Pulmonary Breath Sounds: bilateral Clear Respiratory Effort: Labored Anesthesia Assess/Plan ASA Score: 4 Level of consciousness: Cooperative Anesthetic Plan: General (increased risk of post op pulmonary complications) Monitoring Plan: Standard Monitors Recovery Plan: PACU
[2018-08-03] MEDS ORDERED: Isovue-300 50 ML VIAL ONE (16:07)
[2018-08-03] MEDS ORDERED: Ipratropium/Albuterol Neb 3 ML ONE (16:09)
[2018-08-03] MEDS ORDERED: Ipratropium/Albuterol Neb 3 ML IH ONE (16:10)
[2018-08-03] MEDS ORDERED: Ipratropium Neb 0.5 MG NEBULIZER IH ONE ×2 (16:45→18:07)
[2018-08-03] MEDS ORDERED: Ondansetron 4 MG/2 ML VIAL IVP ONE ×2 (16:45→18:07)
[2018-08-03] MEDS ORDERED: *HR* FentaNYL (PF) 100 MCG/2 ML VIAL IVP PRN ×3 (16:45→18:07)
[2018-08-03] MEDS ORDERED: Albuterol 2.5 MG/3 ML NEBULIZER IH ONE ×2 (16:45→18:07)
[2018-08-03] MEDS ORDERED: *HR* Metoprolol 5 MG/5 ML VIAL IVP ONE (16:52)
--- NOTE | 2018-08-03 17:23 | Operative Note ---
Date of procedure: 08/03/18 Pre-op diagnosis: Left ureteral calculus Post-op diagnosis: same Procedure: Cystoscopy, left retrograde ureteral pyelography with intraoperative interpretation of radial graphic images in real time by surgeon to facilitate procedure, left ureteroscopy and laser lithotripsy of left ureteral calculus left double-J stent placement. Implants: 6 x 26 left double-J stent Complications: None Anesthesia: GETA Surgeon: Santhosh Meeks Was there an employment legal assistant present: No Estimated blood loss (cc): 0 Specimen: none Condition: stable Disposition: PACU Procedure in Detail: Cystoscopy with LEFT Retrograde Pyelography, Intraoperative Interpretation of all Radiographic Images in Real Time by Surgeon (necessary for succesful completion of procedure), Ureteroscopy, Holmium Laser Lithotripsy of Ureteral Calculus, Retrograde Placement of Ureteral Stent under Flouroscopic Guidance: The patient was brought to the operating theater, identified by name, date of and medical record number. He was administered a general anesthetic. The patient was positioned in dorsal lithotomy then prepped and draped in sterile fashion. The cystoscope was inserted into the urethral meatus and advanced toward the bladder under direct visualization. No abnormalities of the urethra were appreciated. No abnormalities of the bladder were appreciated. An open-ended catheter was placed into the ipsilateral ureter and with gentle injection of contrast a retrograde pyelogram was performed. Real-time interpretation of these radiographic images were performed by nitza. Real- time interpretation of retrograde images revealed a filling defect in the mid to distal ureter with significant obstruction and difficulty injecting contrast beyond this defect. These findings were consistent with the stone recently seen on CT migrating from the proximal to distal ureter. Based on intraoperative interpretation of these images the following procedure was indicated: A Glidewire was passed through the open-ended catheter and into the ipsilateral renal pelvis. The cystoscope and open-ended ureteral catheter were removed leaving the Glidewire in place. Alongside the Glidewire and under direct vision a rigid ureteroscope was advanced through the urethra, bladder and into the ureter. Under direct vision the ureteroscope was advanced in the ureter until the stone was encountered. Once the stone was encountered a 200 holmium laser fiber was obtained and placed on a setting of 0.5 and a rate of 20. The stone was easily fragmented into multiple small pieces which were felt to be of easily passable and non-clinically significant size. At this point the ureteroscope was removed. Over the existing Glidewire a 6- Mac[place] ureteral stent was placed under fluoroscopic guidance. Once the stent was felt to be in good position the Glidewire was removed. Real-time fluoroscopy confirmed proper stent placement. Patient's bladder was drained of irrigant and this ended the operative procedure. The patient tolerated the procedure well. There are no complications. The patient was awakened in the operating theater, extubated and transferred to recovery in stable condition. Complications: None Findings: Ureteral Calculus EBL: 2ml Specimen: None Implants: ureteral JJ stent Surgeron: Santhosh Meeks MD
--- NOTE | 2018-08-03 17:36 | Urology Progress Note ---
Date of Encounter: 08/03/18 Time of Encounter: 17:34 - Assessment and Plan (1) Ureteral stone with hydronephrosis Current Visit: Yes Status: Acute Assessment and plan: Patient underwent uncomplicated left ureteroscopy with holmium laser lithotripsy of left double-J stent placement today 08/03/2018. Patient okay to discharge ho me post procedure from urology perspective. Home-going prescription for Percocet attached to chart. Ongoing prescription for ciprofloxacin and oxybutynin sent to pharmacy electronically. Thank you for admitting and managing this patient medically. Objective Initial Vital Signs Temp Pulse Resp BP Pulse Ox 98.2 F 71 20 153/60 95 08/02/18 16:37 08/02/18 16:37 08/02/18 16:37 08/02/18 16:37 08/02/18 16:37 - Labs 08/03/18 03:16 08/03/18 03:16 Diabetes panel 08/02/18 08/03/18 Range/Units 17:00 03:16 Sodium 137 138 (136-145) mEq/L Potassium 4.1 4.2 (3.5-5.1) mEq/L Chloride 104 106 (98-107) mEq/L Carbon Dioxide 22 L 23 (23-29) mEq/L BUN 28 H 22 (8-23) mg/dL Creatinine 1.77 H 1.59 H (0.70-1.30) mg/dL Glucose 131 H 124 H (70-105) mg/dL Calcium 9.0 8.7 (8.6-10.3) mg/dL AST 15 (13-39) Units/L ALT 10 (7-52) Units/L Alkaline Phosphatase 60 (34-104) Units/L Albumin 3.5 (3.5-5.7) g/dL Calcium panel 08/02/18 08/03/18 Range/Units 17:00 03:16 Calcium 9.0 8.7 (8.6-10.3) mg/dL Phosphorus 2.8 (2.7-4.5) mg/dL Albumin 3.5 (3.5-5.7) g/dL Pituitary panel 08/02/18 08/03/18 Range/Units 17:00 03:16 Sodium 137 138 (136-145) mEq/L Potassium 4.1 4.2 (3.5-5.1) mEq/L Chloride 104 106 (98-107) mEq/L Carbon Dioxide 22 L 23 (23-29) mEq/L BUN 28 H 22 (8-23) mg/dL Creatinine 1.77 H 1.59 H (0.70-1.30) mg/dL Glucose 131 H 124 H (70-105) mg/dL Calcium 9.0 8.7 (8.6-10.3) mg/dL Adrenal panel 08/02/18 08/03/18 Range/Units 17:00 03:16 Sodium 137 138 (136-145) mEq/L Potassium 4.1 4.2 (3.5-5.1) mEq/L Chloride 104 106 (98-107) mEq/L Carbon Dioxide 22 L 23 (23-29) mEq/L BUN 28 H 22 (8-23) mg/dL Creatinine 1.77 H 1.59 H (0.70-1.30) mg/dL Glucose 131 H 124 H (70-105) mg/dL Calcium 9.0 8.7 (8.6-10.3) mg/dL Total Bilirubin 0.9 (0.3-1.0) mg/dL AST 15 (13-39) Units/L ALT 10 (7-52) Units/L Alkaline Phosphatase 60 (34-104) Units/L Albumin 3.5 (3.5-5.7) g/dL Consult Discharge Plan - Plan Referrals: Scott Belle MD [Primary Care Provider] - 08/06/18 2:00 pm
[2018-08-03] MEDS ORDERED: Acetaminophen 325 MG TABLET PO PRN (18:07)
[2018-08-03] MEDS ORDERED: Ondansetron 4 MG/2 ML VIAL IVP PRN (18:07)
[2018-08-03] MEDS ORDERED: Naloxone 0.4 MG/ML INJ IVP PRN (18:07)
--- NOTE | 2018-08-03 18:16 | Anesthesia Evaluation Post Op ---
Date of Encounter: 08/03/18 Time of Encounter: 17:52 - Discharge PostOp Status: Transfer Patient to floor (Patient's vital signs have been reviewed. Patient is stable postoperatively and has adequately recovered from anesthesia. Patient is determined to have stable airway patency and respiratory function including respiratory rate and oxygen saturation. Patient has a stable heart rate, blood pressure and adequate hydration. Patients mental status is acceptable. Patients temperature is appropriate. Pain and nausea are adequately controlled.)
[2018-08-04 06:43] LABS: Folate > 22.3 ng/mL (3.0-16.0); Vitamin B12 331 pg/mL (250-1100)
[2018-08-04 08:03] VITALS: BP 153/79
--- NOTE | 2018-08-04 08:17 | Discharge Summary ---
<Heber Vogel - Last Filed: 08/04/18 08:45> - NOTES TO OUTPATIENT PROVIDER Notes to Outpatient Provider: 83 year old male with 8mm obstructing stone of his left ureter now s/p left ureteroscopy and laser lithotripsy of left ureteral calculus + left double-J stent placement. Patient has [place] at home for pain ma nagement and ongoing prescription for ciprofloxacin and oxybutynin per urology. Orders not resulted at time of discharge: Pending orders 08/03/18 16:02 ECG 12 lead ECG [ECG] Stat Date of Encounter: 08/04/18 Time of Encounter: 08:17 - Discharge Diagnosis (1) Ureteral stone with hydronephrosis Priority: Primary Status: Acute (2) Acute kidney injury Priority: Primary Status: Acute (3) Anemia Priority: Secondary Status: Acute Qualifiers: Qualified Code(s): D64.9 - Anemia, unspecified (4) Hypertension Priority: Secondary Status: Acute Qualifiers: Qualified Code(s): I10 - Essential (primary) hypertension Hospital course: Mr. Frances is a 83 year old male PMHx multiple kidney stones requiring surgical resection, hypertension presented to ED with severe left sided back pain. Pain was sharp and stabbing in nature, 8/10 in severity, started on his left flank and radiates around into his left lower abdomen. He also had difficulty tole rating PO intake and voiding. Urine had been tea-colored. At ED, CT abdomen/pelvis without contrast demonstrated left-sided obstructive uropathy with 8mm obstructing calculus in proximal left ureter with moderate hydroureter and hydronephrosis and stable 5cm infrarenal abdominal aortic aneurysm. Blood work significant for leukocytosis and worsening kidney function. UA was unremarkable. Patient was admitted for urethral stone with hydronephrosis and RADHA with urology consult. On 08/03/18, Dr. Meeks performed cystoscopy, left retrograde ureteral pyelography, left ureteroscopy and laser lithotripsy of left ureteral calculus with left double-J stent placement. Patient tolerated procedure well with resolution of symptoms. Patient was able to tolerate PO intake and ambulate without difficulty. Voiding without difficulty as well. He is to be discharged with urology and PCP follow up. Patient has [place] at home for back pain and would prefer to avoid Percocet. Advised to intake [place] for pain. Oxybutinin and ciprofloxacin for prophylaxis. Follow up with PCP and urology. Discharge discussed with: patient, family - Time Spent with Patient Total time spent providing and/or coordinating discharge services: Time spent: D/C greater than 8 hours after Admission - Discharge Medications Prescriptions: New Ciprofloxacin [Cipro] 500 mg PO BID 3 Days #6 tablet RX: Oxybutynin [Ditropan] 5 mg PO TID PRN #20 tablet PRN Reason: Bladder/Stent irritation Oxycodone HCl/Acetaminophen [Percocet 5-325 mg Tablet] 1 each PO Q4-6H PRN 3 Days #10 tablet PRN Reason: pain No Action Sertraline [Zoloft] 50 mg PO HS Atorvastatin [Lipitor] 40 mg PO HS Aspirin [Lo-Dose Aspirin EC] 81 mg PO DAILY Cyanocobalamin (Vitamin B-12) [Vitamin B12] 500 mcg PO Q48H Folic Acid [FA-8] 0.8 mg PO DAILY Cholecalciferol (Vitamin D3) [Vitamin D] 1,000 unit PO DAILY Pantoprazole Sodium [Protonix] 40 mg PO DAILY RX: Mercaptopurine [Purinethol] 75 mg PO DAILY Levothyroxine [Synthroid] 125 mcg PO DAILY Clopidogrel [Plavix] 75 mg PO DAILY RX: Lisinopril [Zestril] 10 mg PO DAILY RX: Metoprolol Tartrate 50 mg PO BID RX: traZODone [TraZODone] 100 mg PO HS Albuterol Sulfate [Ventolin Hfa] 8 gm IH DAILY RX: Nicotine Patch [Nicoderm] 21 mg TD DAILY RX: Tiotropium Br/Olodaterol HCl [Stiolto Respimat Inhal Red Level] 2 puff IH DAILY RX: HYDROcodone/Acet 5/325 mg [[place] 5-325 mg] 1 tab PO BID PRN PRN Reason: Pain Fluticasone Propionate [Flovent Hfa] 1 puff IH BID Home Medications: Albuterol Sulfate [Ventolin Hfa] 8 gm IH DAILY 08/03/18 [History] Aspirin [Lo-Dose Aspirin EC] 81 mg PO DAILY 08/03/18 [History] Atorvastatin [Lipitor] 40 mg PO HS 08/03/18 [History] Cholecalciferol (Vitamin D3) [Vitamin D] 1,000 unit PO DAILY 08/03/18 [History] Ciprofloxacin [Cipro] 500 mg PO BID 3 Days #6 tablet 08/03/18 [Rx] Clopidogrel [Plavix] 75 mg PO DAILY 08/03/18 [History] Cyanocobalamin (Vitamin B-12) [Vitamin B12] 500 mcg PO Q48H 08/03/18 [History] Fluticasone Propionate [Flovent Hfa] 1 puff IH BID 08/03/18 [History] Folic Acid [FA-8] 0.8 mg PO DAILY 08/03/18 [History] Levothyroxine [Synthroid] 125 mcg PO DAILY 08/03/18 [History] Oxycodone HCl/Acetaminophen [Percocet 5-325 mg Tablet] 1 each PO Q4-6H PRN 3 Days #10 tablet 08/03/18 [Rx] Pantoprazole Sodium [Protonix] 40 mg PO DAILY 08/03/18 [History] RX: HYDROcodone/Acet 5/325 mg [[place] 5-325 mg] 1 tab PO BID PRN 08/03/18 [History] RX: Lisinopril [Zestril] 10 mg PO DAILY 08/03/18 [History] RX: Mercaptopurine [Purinethol] 75 mg PO DAILY 08/03/18 [History] RX: Metoprolol Tartrate 50 mg PO BID 08/03/18 [History] RX: Nicotine Patch [Nicoderm] 21 mg TD DAILY 08/03/18 [History] RX: Oxybutynin [Ditropan] 5 mg PO TID PRN #20 tablet 08/03/18 [Rx] RX: Tiotropium Br/Olodaterol HCl [Stiolto Respimat Inhal Red Level] 2 puff IH DAILY 08/03/18 [History] RX: traZODone [TraZODone] 100 mg PO HS 08/03/18 [History] Sertraline [Zoloft] 50 mg PO HS 08/03/18 [History] Allergies/Adverse Reactions: Allergy/AdvReac Type Severity Reaction Status Date / Time oxycodone Allergy Hallucinati Verified 08/02/18 19:47 ng Date of admission: 08/02/18 18:31 Primary care physician: Scott Belle Consults: 08/02/18 16:56 Consult to Urology [CONS] Stat Consulting Provider: Urology Monica Reason for Consult: previous hx of surgical intervention with kidney stones, current left 8mm obstructive stone with intractable pain Time Notified: 17:08 Call Completed: Yes Discharging clinician: Heber Vogel Anticipated date of discharge: 08/04/18 - Constitutional Vitals: Temp Pulse Resp BP Pulse Ox 97.9 F 65 16 153/79 95 08/04/18 08:00 08/04/18 08:00 08/04/18 08:00 08/04/18 08:00 08/04/18 08:00 Exam: As below - Head Head exam: Present: atraumatic, normocephalic - Eye Eye exam: Present: PERRL, conjuntiva pink, sclera anicteric Pupils: Present: PERRL - Neck Neck exam general surgery: Present: supple, trachea midline. Absent: lymphadenopathy - Respiratory Respiratory exam: Present: CTAB. Absent: accessory muscle use, rales, rhonchi, wheezes - Cardiovascular Cardiovascular exam: Present: RRR, +S1, +S2. Absent: diastolic murmur, gallop, rubs, systolic murmur - GI/Abdominal GI/Abdominal exam: Present: normal bowel sounds, soft, no peritoneal signs. Absent: distended, tenderness - Extremities Exam Extremities exam: Present: warm, radial pulses palpable and symmetrical. Absent: calf tenderness, cyanotic, pedal edema - Neurological Exam Neurological exam: Present: CN II-XII intact, oriented X3, no focal deficits. Absent: pronater drift, facial droop, speech deficit - Skin Skin exam: Present: dry, intact - Patient Status Disposition: Home, Self-Care Condition: Good - Discharge Instructions Follow Up With: Scott Belle MD [Primary Care Provider] - 08/06/18 2:00 pm Additional Instructions: Return to ED if symptoms return. Follow up with PCP and urology. Please use [place] for pain management at home. Continue with oxybutynin and ciprofloxacin. - Diet and Activity Activity: resume usual activities as tolerated Diet: advance to your usual diet <Dakota Brower - Last Filed: 08/04/18 14:32> Date of Encounter: 08/04/18 - Discharge Diagnosis (1) Urolithiasis Status: Acute (2) Aortic aneurysm Status: Acute Qualifiers: Qualified Code(s): I71.9 - Aortic aneurysm of unspecified site, without rupture (3) Acute kidney injury Status: Acute (4) Metabolic acidosis Status: Acute (5) Anemia Status: Acute Qualifiers: Qualified Code(s): D64.9 - Anemia, unspecified (6) DVT prophylaxis Status: Acute Hospital course: Mr. Frances is a 83 year old male - Time Spent with Patient Total time spent providing and/or coordinating discharge services: Date of admission: 08/02/18 18:31 Primary care physician: Scott Belle Consults: 08/02/18 16:56 Consult to Urology [CONS] Stat Consulting Provider: Urology Monica Reason for Consult: previous hx of surgical intervention with kidney stones, current left 8mm obstructive stone with intractable pain Time Notified: 17:08 Call Completed: Yes - Constitutional Vitals: Temp Pulse Resp BP Pulse Ox 97.9 F 65 16 153/79 95 08/04/18 08:00 08/04/18 08:00 08/04/18 08:00 08/04/18 08:00 08/04/18 08:00 - Attending Attestation I examined this patient and my medical decision-making was reviewed with the Resident Physician Dr. Vogel. I agree with the documented findings, disposition and treatment plan as described except to the extent set forth below. Mr. Frances is a 83 year old male PMH of multiple kidney stones, hypertension and hyperlipidemia pt presented to ER with left flank sharp stabbing pain that rad iated to the left lower quadrant of his abdomen. He does have 8 mm obstructing stone of his left ureter was noted. Patient was admitted in the hospital and started him on symptomatic and supportive care. His UA - benign. He was evaluated by urologist did a cystoscopy with stent placement and had lithotripsy. Patient stated he is feeling much better today. Will discharge him home in a stable condition with oral antibiotic ciprofloxacin and pain medication. He does need to follow up with urologist as outpatient
--- NOTE | 2018-08-04 16:47 | Electrocardiograph Report ---
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
== END 2018-08-04 10:33 | disposition home or self-care (01) ==
LOC: 3BNU 16:27 → EMEROOARM 16:27 → SUATTDRO 18:31 → 3BNU 18:52
PROVIDERS: ADMIT Internal Medicine Nephrology; ATTEND Family Medicine

== ENCOUNTER 2019-07-06 16:21 | Observation (INO) ==
[2019-07-06 18:00] LABS: Bilirubin,Urine Negative (Negative); Blood,Urine Large (Negative); Clarity,Urine Cloudy (Clear); Color,Urine Yellow (Yellow); Glucose,Urine (UA) Normal (Normal); Ketones,Urine Negative (Negative); Leukocyte Esterase,Urine Moderate (Negative); Nitrite,Urine Negative (Negative); PH,Urine 5.5 pH Units (5.0-8.0); Protein,Urine 100 mg/dL (Neg-Trace); Specific Gravity,Urine 1.023 (1.010-1.025); Urobilinogen,Urine Normal (Normal)
[2019-07-06 18:04] LABS: Bacteria,Urine None Seen per hpf (None-Few); Hyaline Casts,Urine None Seen per lpf (None-Few); Squamous Epithelial Cell,Urine None Seen per lpf (None-Few); WBC,Urine 50-100 per hpf (0-3)
[2019-07-06] MEDS ORDERED: Morphine Sulfate 2 MG/ML SYRINGE IVP ONE (18:05)
[2019-07-06 18:09] LABS: Basophils # 0.1 K/mcL (0.0-0.2); Basophils % 0.4 %; Eosinophils # 0.1 K/mcL (0.0-0.6); Eosinophils % 0.6 %; Hematocrit 45.6 % (37.5-50.1); Hemoglobin 14.8 g/dL (12.9-16.9); Immature Granulocytes % 0.4 % (0-4); Lymphocytes # 0.4 K/mcL (0.6-4.6); Lymphocytes % 3.9 %; Mean Corpuscular HGB Conc 32.5 g/dL (31.6-35.5); Mean Corpuscular Volume 104.8 fL (83.0-100.0); Mean Platelet Volume 9.2 fL (9.4-12.4); Monocytes # 0.9 K/mcL (0.0-1.3); Monocytes % 7.7 %; Neutrophils # 9.7 K/mcL (1.6-8.9); Platelet Count 320 K/mcL (140-400); Red Blood Count 4.35 M/mcL (4.19-5.50); Red Cell Distribution Width 13.9 % (11.5-14.5); White Blood Count 11.2 K/mcL (4.3-11.1)
[2019-07-06 18:19] LABS: BUN/Creatinine Ratio 17 (6-26); Blood Urea Nitrogen 21 mg/dL (8-23); Calcium 9.9 mg/dL (8.6-10.3); Carbon Dioxide 25 mEq/L (23-29); Chloride 107 mEq/L (98-107); Glucose 128 mg/dL (70-105); Osmolality,Calculated 289 (280-300); Potassium 4.1 mEq/L (3.5-5.1); Sodium 137 mEq/L (136-145); eGFR For African Americans > 60 (> 60); eGFR For Non-African Americans 54 (> 60)
[2019-07-06 18:50] LABS: RBC,Urine 15-30 per hpf (0-3)
[2019-07-06 18:51] LABS: Troponin I < 0.03 ng/mL (< 0.04)
[2019-07-06] MEDS ORDERED: *HR* HYDROmorphone (PF) 1 MG/ML SYRINGE IVP STA (18:52)
[2019-07-06] MEDS ORDERED: cefTRIAXone 1,000 MG in Water for inj. (sterile) 10 ML IVP ONE (18:54)
[2019-07-06] MEDS ORDERED: *HR* HYDROmorphone (PF) 1 MG/ML SYRINGE IVP ONE (18:56)
[2019-07-06 19:04] LABS: Alanine Aminotransferase 16 Units/L (7-52); Albumin 4.7 g/dL (3.5-5.7); Albumin/Globulin Ratio 1.7 (1.1-2.2); Alkaline Phosphatase 103 Units/L (34-104); Aspartate Amino Transferase 19 Units/L (13-39); Bilirubin,Direct 0.1 mg/dL (0.0-0.2); Bilirubin,Indirect 0.6 mg/dL (0.0-1.0); Bilirubin,Total 0.7 mg/dL (0.3-1.0); Globulin 2.8 g/dL (2.4-3.5); Lipase 20 Units/L (11-82); Total Protein 7.5 g/dL (6.4-8.9)
[2019-07-06] MEDS: 0.9 % Sodium Chloride 1,000 ML IVC SCH (19:11)
[2019-07-06] MEDS ORDERED: Acetaminophen 325 MG TABLET PO PRN (20:18)
[2019-07-06] MEDS ORDERED: Ondansetron 4 MG/2 ML VIAL IVP PRN (20:18)
[2019-07-06] MEDS ORDERED: Naloxone 0.4 MG/ML INJ IVP PRN (20:18)
[2019-07-06] MEDS ORDERED: Ipratropium/Albuterol Neb 3 ML IH SCH (20:30)
[2019-07-06] MEDS ORDERED: traZODone 50 MG TABLET PO SCH (21:00)
[2019-07-06] MEDS: *HR* Heparin 5,000 UNIT/ML VIAL SQ SCH (22:20)
[2019-07-06] MEDS: *HR* HYDROmorphone (PF) 1 MG/ML SYRINGE IVP PRN (22:21)
[2019-07-07] MEDS: Levalbuterol Neb 1.25 MG/3 ML IH SCH ×5 (02:24→22:00)
[2019-07-07 03:13] LABS: Adenovirus Not Detected (Not Detect); Bordetella Pertussis Not Detected (Not Detect); Chlamydophila pneumoniae Not Detected (Not Detect); Coronavirus 229E Not Detected (Not Detect); Coronavirus HKU1 Not Detected (Not Detect); Coronavirus NL63 Not Detected (Not Detect); Coronavirus OC43 Not Detected (Not Detect); Human Metapneumovirus Not Detected (Not Detect); Human Rhinovirus/Enterovirus Not Detected (Not Detect); Influenza A Subtype 2009 H1 Not Detected (Not Detect); Influenza B Not Detected (Not Detect); Mycoplasma pneumoniae Not Detected (Not Detect); Parainfluenza Virus 1 Not Detected (Not Detect); Parainfluenza Virus 2 Not Detected (Not Detect); Parainfluenza Virus 3 Not Detected (Not Detect); Parainfluenza Virus 4 Not Detected (Not Detect); Respiratory Syncytial Virus Not Detected (Not Detect)
[2019-07-07] MEDS: *HR* HYDROmorphone (PF) 1 MG/ML SYRINGE IVP PRN ×2 (03:27→08:54)
[2019-07-07] MEDS: *HR* Heparin 5,000 UNIT/ML VIAL SQ SCH ×3 (05:58→22:40)
[2019-07-07 06:38] LABS: Basophils % 0.3 %; Eosinophils # 0.1 K/mcL (0.0-0.6); Eosinophils % 0.7 %; Hematocrit 39.5 % (37.5-50.1); Immature Granulocytes % 0.3 % (0-4); Lymphocytes # 0.6 K/mcL (0.6-4.6); Mean Corpuscular HGB Conc 32.4 g/dL (31.6-35.5); Mean Corpuscular Volume 105.1 fL (83.0-100.0); Mean Platelet Volume 9.3 fL (9.4-12.4); Monocytes # 1.1 K/mcL (0.0-1.3); Monocytes % 11.4 %; Neutrophils # 7.5 K/mcL (1.6-8.9); Platelet Count 258 K/mcL (140-400); Red Blood Count 3.76 M/mcL (4.19-5.50); Red Cell Distribution Width 14.2 % (11.5-14.5); Segmented Neutrophils % 81.3 %; White Blood Count 9.2 K/mcL (4.3-11.1)
[2019-07-07 06:40] LABS: Hemoglobin 12.8 g/dL (12.9-16.9)
[2019-07-07 06:57] LABS: % Iron Saturation 11 % (20-55); Iron 30 mcg/dL (65-175); Transferrin 196 mg/dL (203-362)
[2019-07-07 07:01] LABS: BUN/Creatinine Ratio 18 (6-26); Blood Urea Nitrogen 23 mg/dL (8-23); Calcium 9.3 mg/dL (8.6-10.3); Carbon Dioxide 25 mEq/L (23-29); Chloride 106 mEq/L (98-107); Glucose 123 mg/dL (70-105); Magnesium 1.7 mg/dL (1.6-2.6); Osmolality,Calculated 293 (280-300); Potassium 3.9 mEq/L (3.5-5.1); Sodium 139 mEq/L (136-145); eGFR For African Americans > 60 (> 60); eGFR For Non-African Americans 52 (> 60)
[2019-07-07 07:44] LABS: Folate > 22.3 ng/mL (3.0-16.0); Vitamin B12 404 pg/mL (250-1100)
[2019-07-07] MEDS: 0.9 % Sodium Chloride 1,000 ML IVC SCH (08:48)
[2019-07-07] MEDS ORDERED: cefTRIAXone 1,000 MG in 0.9 % Sodium Chloride Mini Bag 100 ML IVPB SCH (09:00)
[2019-07-07] MEDS ORDERED: Ketorolac 30 MG/ML VIAL IVP ONE (12:03)
[2019-07-07] MEDS ORDERED: *HR* HYDROmorphone (PF) 1 MG/ML SYRINGE IVP PRN ×2 (12:27→18:29)
[2019-07-07] MEDS ORDERED: *HR* Propofol 200 MG/20 ML VIAL IVP ONE (16:33)
[2019-07-07] MEDS ORDERED: *HR* Succinylcholine 200 MG/10 ML VIAL IVP ONE (16:33)
[2019-07-07] MEDS ORDERED: Lidocaine -MPF 2% 2 ML VIAL ONE (16:33)
[2019-07-07] MEDS ORDERED: *HR* FentaNYL (PF) 100 MCG/2 ML VIAL ONE (16:33)
[2019-07-07] MEDS ORDERED: Ondansetron 4 MG/2 ML VIAL ONE (16:33)
[2019-07-07] MEDS ORDERED: Lidocaine HCL 4 ML Topical Solution (Laryng-O-Jet Kit Sterile Pak) TP ONE (16:36)
[2019-07-07] MEDS ORDERED: 0.9 % Sodium Chloride 1,000 ML IVC SCH (18:29)
[2019-07-07] MEDS ORDERED: Acetaminophen 325 MG TABLET PO PRN (18:29)
[2019-07-07] MEDS ORDERED: Naloxone 0.4 MG/ML INJ IVP PRN (18:29)
[2019-07-07] MEDS ORDERED: Ondansetron 4 MG/2 ML VIAL IVP PRN (18:29)
[2019-07-07] MEDS ORDERED: traZODone 50 MG TABLET PO SCH (21:00)
[2019-07-07] MEDS ORDERED: *HR* LORazepam 2 MG/ML VIAL IVP ONE (22:08)
[2019-07-07 23:00] LABS: Hematocrit 34.7 % (37.5-50.1)
[2019-07-08] MEDS: 0.9 % Sodium Chloride 1,000 ML IVC SCH ×2 (02:33→11:00)
[2019-07-08] MEDS: Levalbuterol Neb 1.25 MG/3 ML IH SCH ×3 (04:01→16:20)
[2019-07-08 05:30] LABS: Basophils % 0.6 %; Eosinophils # 0.2 K/mcL (0.0-0.6); Eosinophils % 2.9 %; Hematocrit 34.1 % (37.5-50.1); Immature Granulocytes % 0.6 % (0-4); Lymphocytes # 0.6 K/mcL (0.6-4.6); Lymphocytes % 11.7 %; Mean Corpuscular HGB Conc 32.3 g/dL (31.6-35.5); Mean Corpuscular Hemoglobin 34.1 pg (28.0-33.3); Mean Corpuscular Volume 105.6 fL (83.0-100.0); Mean Platelet Volume 9.4 fL (9.4-12.4); Monocytes # 0.7 K/mcL (0.0-1.3); Monocytes % 13.3 %; Neutrophils # 3.6 K/mcL (1.6-8.9); Nucleated Red Blood Cells 0.4 /100 WBC (0); Platelet Count 223 K/mcL (140-400); Red Blood Count 3.23 M/mcL (4.19-5.50); Red Cell Distribution Width 14.5 % (11.5-14.5); Segmented Neutrophils % 70.9 %; White Blood Count 5.1 K/mcL (4.3-11.1)
[2019-07-08 05:51] LABS: BUN/Creatinine Ratio 22 (6-26); Blood Urea Nitrogen 27 mg/dL (8-23); Calcium 8.8 mg/dL (8.6-10.3); Carbon Dioxide 25 mEq/L (23-29); Chloride 108 mEq/L (98-107); Glucose 108 mg/dL (70-105); Osmolality,Calculated 294 (280-300); Sodium 139 mEq/L (136-145); eGFR For African Americans > 60 (> 60); eGFR For Non-African Americans 55 (> 60)
[2019-07-08] MEDS: *HR* Heparin 5,000 UNIT/ML VIAL SQ SCH ×2 (05:59→13:15)
[2019-07-08] MEDS ORDERED: Tiotropium 18 MCG inhalation IH SCH ×2 (07:00)
[2019-07-08] MEDS ORDERED: cefTRIAXone 1,000 MG in Water for inj. (sterile) 10 ML IVP SCH (09:00)
[2019-07-08 10:43] VITALS: BP 118/50
[2019-07-08 11:00] LABS: Hematocrit 35.1 % (37.5-50.1); Hemoglobin 11.3 g/dL (12.9-16.9)
== END 2019-07-08 16:43 | disposition home or self-care (01) ==
LOC: EMEROOARM 16:21 → 3ANU 16:21 → SUATTDRO 19:50 → 3ANU 20:21
PROVIDERS: ADMIT Student in an Organized Health Care Education/Training Program; ATTEND Student in an Organized Health Care Education/Training Program

== ENCOUNTER 2021-02-19 17:17 | Observation (INO) ==
[2021-02-19] MEDS ORDERED: *HR* FentaNYL (PF) 100 MCG/2 ML VIAL IVP ONE (18:01)
[2021-02-19 18:36] LABS: Basophils % 0.4 %; Eosinophils # 0.1 K/mcL (0.0-0.6); Eosinophils % 1.2 %; Hematocrit 42.9 % (37.5-50.1); Immature Granulocytes % 0.5 % (0-4); Lymphocytes # 0.5 K/mcL (0.6-4.6); Lymphocytes % 4.7 %; Mean Corpuscular HGB Conc 32.6 g/dL (31.6-35.5); Mean Corpuscular Hemoglobin 33.2 pg (28.0-33.3); Mean Corpuscular Volume 101.7 fL (83.0-100.0); Mean Platelet Volume 9.5 fL (9.4-12.4); Monocytes # 0.8 K/mcL (0.0-1.3); Monocytes % 8.1 %; Neutrophils # 8.8 K/mcL (1.6-8.9); Platelet Count 286 K/mcL (140-400); Red Blood Count 4.22 M/mcL (4.19-5.50); Red Cell Distribution Width 14.3 % (11.5-14.5); Segmented Neutrophils % 85.1 %; White Blood Count 10.3 K/mcL (4.3-11.1)
[2021-02-19 18:38] LABS: Bacteria,Urine Few per hpf (None-Few); Bilirubin,Urine Negative (Negative); Blood,Urine Large (Negative); Clarity,Urine Turbid (Clear); Color,Urine Light-Orange (Yellow); Glucose,Urine (UA) Normal (Normal); Ketones,Urine Negative (Negative); Leukocyte Esterase,Urine Negative (Negative); Nitrite,Urine Negative (Negative); Protein,Urine 70 mg/dL (Neg-Trace); RBC,Urine TNTC per hpf (0-3); Specific Gravity,Urine 1.023 (1.010-1.025); Squamous Epithelial Cell,Urine Few per hpf (None-Few); Urobilinogen,Urine Normal (Normal); WBC,Urine 50-100 per hpf (0-3)
[2021-02-19 18:55] LABS: BUN/Creatinine Ratio 18 (6-26); Blood Urea Nitrogen 21 mg/dL (8-23); Calcium 9.5 mg/dL (8.6-10.3); Carbon Dioxide 29 mEq/L (23-29); Chloride 103 mEq/L (98-107); Glucose 122 mg/dL (70-105); Osmolality,Calculated 290 (280-300); Potassium 4.1 mEq/L (3.5-5.1); Sodium 138 mEq/L (136-145); eGFR For African Americans > 60 (> 60); eGFR For Non-African Americans 59 (> 60)
[2021-02-19] MEDS ORDERED: Isovue-370 500 ML BOTTLE IVP ONE (19:10)
[2021-02-19] MEDS ORDERED: *HR* HYDROmorphone (PF) 1 MG/ML SYRINGE IVP ONE (20:11)
[2021-02-19] MEDS ORDERED: Morphine Sulfate 2 MG/ML SYRINGE IVP ONE ×2 (22:09→23:45)
[2021-02-19] MEDS ORDERED: cefTRIAXone 1,000 MG in 0.9 % Sodium Chloride Mini Bag 100 ML IVPB ONE (22:10)
[2021-02-19] MEDS ORDERED: Ondansetron 4 MG/2 ML VIAL IVP ONE (22:10)
[2021-02-19] MEDS ORDERED: Naloxone 0.4 MG/ML INJ IVP PRN (22:44)
[2021-02-19] MEDS ORDERED: Ondansetron 4 MG/2 ML VIAL IVP PRN (22:44)
[2021-02-19] MEDS ORDERED: Acetaminophen 325 MG TABLET PO PRN (22:44)
[2021-02-19] MEDS ORDERED: 0.9 % Sodium Chloride 1,000 ML IVC SCH (22:45)
[2021-02-19] MEDS ORDERED: Morphine Sulfate 2 MG/ML SYRINGE IVP PRN (23:03)
[2021-02-20] MEDS ORDERED: *HR* Promethazine 25 MG/ML VIAL IM PRN ×2 (01:05→18:29)
[2021-02-20 05:36] LABS: Hematocrit 39.1 % (37.5-50.1); Hemoglobin 13.3 g/dL (12.9-16.9); Mean Corpuscular Hemoglobin 33.9 pg (28.0-33.3); Mean Corpuscular Volume 99.7 fL (83.0-100.0); Mean Platelet Volume 9.5 fL (9.4-12.4); Platelet Count 277 K/mcL (140-400); Red Blood Count 3.92 M/mcL (4.19-5.50); Red Cell Distribution Width 14.6 % (11.5-14.5); White Blood Count 9.1 K/mcL (4.3-11.1)
[2021-02-20 05:57] LABS: Calcium 9.2 mg/dL (8.6-10.3); Potassium 3.9 mEq/L (3.5-5.1)
[2021-02-20] MEDS: *HR* HYDROmorphone (PF) 1 MG/ML SYRINGE IVP PRN ×4 (09:01→22:53)
[2021-02-20] MEDS ORDERED: Ondansetron 4 MG/2 ML VIAL IVP PRN ×2 (16:22→18:29)
[2021-02-20] MEDS ORDERED: Albuterol 2.5 MG/3 ML NEBULIZER IH PRN ×3 (16:22→18:29)
[2021-02-20] MEDS ORDERED: Albuterol 2.5 MG/3 ML NEBULIZER IH ONE (16:22)
[2021-02-20] MEDS ORDERED: *HR* FentaNYL (PF) 100 MCG/2 ML VIAL IVP PRN (16:22)
[2021-02-20] MEDS ORDERED: *HR* Propofol 200 MG/20 ML VIAL IVP ONE (16:40)
[2021-02-20] MEDS ORDERED: Ondansetron 4 MG/2 ML VIAL ONE (16:41)
[2021-02-20] MEDS ORDERED: Lidocaine -MPF 2% 5 ML VIAL ONE (16:41)
[2021-02-20] MEDS ORDERED: *HR* FentaNYL (PF) 100 MCG/2 ML VIAL ONE (16:41)
[2021-02-20] MEDS ORDERED: EPHEDrine 50 MG/ML VIAL ONE (17:11)
[2021-02-20] MEDS ORDERED: Cyanocobalamin (B-12) 1,000 MCG TABLET PO SCH (17:30)
[2021-02-20] MEDS ORDERED: Acetaminophen 325 MG TABLET PO PRN (18:29)
[2021-02-20] MEDS ORDERED: Naloxone 0.4 MG/ML INJ IVP PRN (18:29)
[2021-02-20] MEDS ORDERED: ACTUA AER SCH (21:00)
[2021-02-20] MEDS ORDERED: traZODone 50 MG TABLET PO SCH ×2 (21:00)
[2021-02-20] MEDS ORDERED: FLUTICASONE PROPIONATE AER SCH (21:00)
[2021-02-20] MEDS ORDERED: cefTRIAXone 1,000 MG in Water for inj. (sterile) 10 ML IVP SCH (23:00)
[2021-02-21] MEDS: *HR* HYDROmorphone (PF) 1 MG/ML SYRINGE IVP PRN ×3 (01:27→06:08)
[2021-02-21 02:08] LABS: Hematocrit 36.4 % (37.5-50.1); Mean Corpuscular HGB Conc 32.1 g/dL (31.6-35.5); Mean Corpuscular Hemoglobin 32.7 pg (28.0-33.3); Mean Corpuscular Volume 101.7 fL (83.0-100.0); Mean Platelet Volume 9.8 fL (9.4-12.4); Platelet Count 249 K/mcL (140-400); Red Blood Count 3.58 M/mcL (4.19-5.50); White Blood Count 5.8 K/mcL (4.3-11.1)
[2021-02-21 02:10] LABS: Hemoglobin 11.7 g/dL (12.9-16.9)
[2021-02-21 02:28] LABS: BUN/Creatinine Ratio 18 (6-26); Blood Urea Nitrogen 24 mg/dL (8-23); Calcium 8.9 mg/dL (8.6-10.3); Carbon Dioxide 28 mEq/L (23-29); Chloride 106 mEq/L (98-107); Glucose 138 mg/dL (70-105); Osmolality,Calculated 294 (280-300); Potassium 4.5 mEq/L (3.5-5.1); Sodium 139 mEq/L (136-145); eGFR For African Americans > 60 (> 60); eGFR For Non-African Americans 50 (> 60)
[2021-02-21] MEDS ORDERED: Folic Acid 1 MG TABLET PO SCH ×2 (09:00)
[2021-02-21] MEDS ORDERED: Aspirin Enteric Coated 81 MG Tablet PO SCH ×2 (09:00)
[2021-02-21] MEDS ORDERED: cefTRIAXone 1,000 MG in Water for inj. (sterile) 10 ML IVP SCH (09:00)
[2021-02-21 10:38] VITALS: BP 130/57; PULSE 68; TEMP 98.7; O2SAT 92
[2021-02-22] MEDS ORDERED: Cyanocobalamin (B-12) 1,000 MCG TABLET PO SCH (17:30)
[2021-02-26 12:30] LABS: Calculi Mass 134 mg
== END 2021-02-21 13:20 | disposition home or self-care (01) ==
LOC: 3ANU 17:17 → EMEROOARM 17:17 → 3ANU 02-20 16:08
PROVIDERS: ADMIT Student in an Organized Health Care Education/Training Program; ATTEND Student in an Organized Health Care Education/Training Program

== ENCOUNTER 2021-05-17 06:43 | Inpatient (IN) ==
[2021-05-17] MEDS ORDERED: *HR* Propofol 200 MG/20 ML VIAL IVP ONE (06:54)
[2021-05-17] MEDS ORDERED: *HR* FentaNYL (PF) 100 MCG/2 ML VIAL ONE ×2 (06:55→09:46)
[2021-05-17] MEDS ORDERED: Ondansetron 4 MG/2 ML VIAL ONE (06:55)
[2021-05-17] MEDS ORDERED: *HR* Rocuronium Bromide 50 MG/5 ML VIAL ONE ×2 (06:55→08:51)
[2021-05-17] MEDS ORDERED: Lidocaine -MPF 2% 5 ML VIAL ONE (06:55)
[2021-05-17] MEDS ORDERED: Albumin Human 5% 25.0 GM/500 ML IV.SOLN ONE (07:09)
[2021-05-17] MEDS ORDERED: NiCARdipine 2.5 MG/10 ML Syringe IVPB ONE (07:09)
[2021-05-17] MEDS ORDERED: Bupivacaine-MPF 0.25% 10 ML VIAL ONE (07:34)
[2021-05-17] MEDS ORDERED: Heparin 1,000 UNITS/500 mL 1,500 ML ONE (07:34)
[2021-05-17] MEDS ORDERED: Isovue-300 50ML VIAL ONE (07:35)
[2021-05-17] MEDS ORDERED: *HR* Vasopressin 20 UNIT/ML VIAL ONE (07:35)
[2021-05-17] MEDS ORDERED: Vancomycin 1,250 MG/262.5 ML IV.SOLN IVPB ONE (07:38)
[2021-05-17] MEDS ORDERED: CeFAZolin Syr 2,000MG/20 ML 2,000 MG/20 ML SYRINGE IVPB ONE (07:38)
[2021-05-17] MEDS ORDERED: *HR* HYDROmorphone PF 0.5 MG/0.5 ML SYRINGE IVP PRN (07:42)
[2021-05-17] MEDS ORDERED: Promethazine 6.25 MG in Water for inj. (sterile) 20 ML IVPB PRN (07:42)
[2021-05-17] MEDS ORDERED: Ondansetron 4 MG/2 ML VIAL IVP PRN (07:42)
[2021-05-17] MEDS ORDERED: Ringers Solution, Lactated 1,000 ML IVC SCH (07:45)
[2021-05-17] MEDS ORDERED: Vancomycin 1,000 MG, Sodium Chloride IRRigation 1,000 ML IR ONE (08:00)
[2021-05-17] MEDS ORDERED: EPHEDrine 50 MG/ML VIAL ONE (09:29)
[2021-05-17] MEDS ORDERED: *HR* Heparin 5,000 UNIT/ML VIAL ONE (10:29)
[2021-05-17] MEDS ORDERED: Sugammadex Sodium 200 MG/2 ML VIAL IV ONE (10:43)
[2021-05-17] MEDS ORDERED: *HR* HYDROcodone/Acet 5/325 mg TABLET PO PRN (14:09)
[2021-05-17] MEDS ORDERED: Cyanocobalamin (B-12) 1,000 MCG TABLET PO SCH (14:09)
[2021-05-17] MEDS ORDERED: *HR* HYDROcodone/Acet 7.5/325 mg TABLET PO PRN (14:09)
[2021-05-17] MEDS ORDERED: Acetaminophen 325 MG TABLET PO PRN (14:09)
[2021-05-17] MEDS ORDERED: *HR* Labetalol 20 MG/4 ML SYRINGE IVP PRN (14:09)
[2021-05-17] MEDS ORDERED: Albuterol 2.5 MG/3 ML NEBULIZER IH PRN (14:09)
[2021-05-17] MEDS ORDERED: Naloxone 0.4 MG/ML INJ IVP PRN (14:09)
[2021-05-17] MEDS ORDERED: 0.9 % Sodium Chloride 1,000 ML IVC SCH (14:09)
[2021-05-17] MEDS: *HR* Metoprolol 5 MG/5 ML VIAL IVP SCH (17:04)
[2021-05-17] MEDS: CeFAZolin 2 GM/120 ML BAG IVPB SCH (17:16)
[2021-05-18] MEDS: *HR* Metoprolol 5 MG/5 ML VIAL IVP SCH ×2 (00:06→06:08)
[2021-05-18] MEDS: CeFAZolin 2 GM/120 ML BAG IVPB SCH (00:50)
[2021-05-18] MEDS: *HR* HYDROcodone/Acet 5/325 mg TABLET PO PRN ×2 (00:54→15:01)
[2021-05-18] MEDS ORDERED: Vancomycin 1,250 MG/262.5 ML IV.SOLN IVPB ONE (01:00)
[2021-05-18 04:58] LABS: Basophils % 0.3 %; Eosinophils # 0.1 K/mcL (0.0-0.6); Eosinophils % 1.2 %; Hematocrit 30.8 % (37.5-50.1); Immature Granulocytes % 0.3 % (0-4); Lymphocytes # 0.6 K/mcL (0.6-4.6); Lymphocytes % 9.3 %; Mean Corpuscular HGB Conc 32.5 g/dL (31.6-35.5); Mean Corpuscular Hemoglobin 34.4 pg (28.0-33.3); Mean Corpuscular Volume 105.8 fL (83.0-100.0); Mean Platelet Volume 9.8 fL (9.4-12.4); Monocytes # 0.9 K/mcL (0.0-1.3); Monocytes % 13.4 %; Neutrophils # 5.1 K/mcL (1.6-8.9); Platelet Count 197 K/mcL (140-400); Red Blood Count 2.91 M/mcL (4.19-5.50); Red Cell Distribution Width 13.4 % (11.5-14.5); Segmented Neutrophils % 75.5 %; White Blood Count 6.7 K/mcL (4.3-11.1)
[2021-05-18 05:12] LABS: BUN/Creatinine Ratio 19 (6-26); Blood Urea Nitrogen 19 mg/dL (8-23); Calcium 8.7 mg/dL (8.6-10.3); Carbon Dioxide 27 mEq/L (23-29); Chloride 105 mEq/L (98-107); Glucose 102 mg/dL (70-105); Osmolality,Calculated 286 (280-300); Potassium 4.2 mEq/L (3.5-5.1); Sodium 137 mEq/L (136-145); eGFR For African Americans > 60 (> 60); eGFR For Non-African Americans > 60 (> 60)
[2021-05-18] MEDS ORDERED: *HR* Heparin 5,000 UNIT/ML VIAL SQ SCH ×2 (06:00)
[2021-05-18] MEDS ORDERED: Folic Acid 1 MG TABLET PO SCH (09:00)
[2021-05-18] MEDS ORDERED: lisinopriL 10 MG TABLET PO SCH (09:00)
[2021-05-18] MEDS ORDERED: Aspirin Enteric Coated 81 MG Tablet PO SCH (09:00)
[2021-05-18] MEDS ORDERED: Tiotropium Br/Olodaterol Hcl [Stiolto Respimat Inhaler] IH SCH (10:00)
[2021-05-18 13:10] VITALS: BP 104/48; PULSE 94; TEMP 98.7
[2021-05-18 15:34] VITALS: O2SAT 91
== END 2021-05-18 16:44 | disposition home or self-care (01) | DRG 269 ==
LOC: SAMDAY 06:43 → 2NNU 14:00
PROVIDERS: ADMIT Surgery; ATTEND Surgery